=== PATIENT | female | born 1940 | race Caucasian/White ===

== ENCOUNTER 2022-05-08 12:36 | Outpatient (CLI) | payer OTHER, SELFPAY ==
--- NOTE | 2022-05-08 06:00 | DI.RAD_ITS ---
Exam(s) XR PAIN CLINIC SACRIOILIAC 2V EXAM: XR PAIN CLINIC SACRIOILIAC 2V CLINICAL HISTORY: Dx: Sacroiliac Joint Injection TECHNIQUE: 2D and realtime digital imaging was performed. CONTRAST MATERIAL: Refer to procedure report. COMPARISON: No exams were available for comparison FINDINGS: Fluoroscopy was provided for Dr. Hooker during the performance of a left SI joint injection. Please r efer to the procedure report for complete details. Ka,r=4.33 mGy IMPRESSION:
[2022-05-08 13:08] VITALS: BP 120/78; PULSE 76; RESP 20; TEMP 36.8; O2SAT 97
[2022-05-08 13:51] VITALS: BP 152/71; PULSE 87; RESP 17; O2SAT 98
[2022-05-08] MEDS: methylPREDNISolone ACETATE 80 MG/ML VIAL IJ (13:52)
[2022-05-08] MEDS: Omnipaque 240 MG/ML 50 ML BTL IJ (13:52)
--- NOTE | 2022-05-14 13:20 | PDOC.PAIN ---
Date of service: 05/08/22 Time of Service: 13:00 Pain Clinic Procedure Note Procedure Note Procedure Note: INTRA-ARTICULAR SI JOINT INJECTION Mitzy Farmer has been referred to the [facility] for intra-articular SI joint injection. COMMENTS: She was previously evaluated in the clinic. Preprocedure pain VAS was 5/10. Dx: Sacroiliac joint dysfunction Patient was interviewed and the medical record reviewed. There were no medical, pharmacologic, radiographic or other structural contraindications to attempting fluoroscopically guided intra-articular SI joint injection. Risks and expected side effects as well as potential benefit of the procedure were reviewed and voiced concerns addressed. The printed consent form was signed and witnessed. Standard time-out procedure was performed. Patient was placed in the prone position on the fluoroscopy table and automated blood pressure cuff and pulse oximeter applied. The skin entry point for approaching the left SI joint was identified under the most advantageous fluoroscopic view and marked. Following thorough Chlorhexadine preparation of the skin and draping and 1% lidocaine infiltration of the skin entry point and subcutaneous tissues, a 22 gauge spinal needle was placed under fluoroscopic guidance into the left SI joint was identified under the most advantageous fluoroscopic view and marked. Intra-articular placement was confirmed by a clear arthrogram resulting from the injection of 0.25ml Omnipaque 240, 1ml 1% lidocaine, and 80mg Depomedrol were injected intra-articularily with an initial reproduction of a significant component of the usual pain. Vital signs were stable throughout the procedure and were as recorded in the docflowsheet by the nursing staff. If given, dosages of intravenous drugs for anxiolysis and analgesia were documented in MAR. Follow up plans and appointments were discussed with the patient. Post procedure instruction was given as documented in nursing documentation and having met discharge criteria, and was discharged from the [facility]. COMMENTS: Post-procedure pain VAS was 1/10. If this procedure is helpful, it can be completed up to 3 times per 12 months. Srinivas Hooker DO, MPH [facility]-Pain Management [facility] CC: ILA NUNN
== END 2022-05-08 12:37 | disposition home or self-care (01) ==
LOC: PC 12:36
PROVIDERS: PCP Family Medicine; Visit Provider Preventive Medicine Occupational Medicine
DX: M53.3 Sacrococcygeal disorders, not elsewhere classified (principal)
CPT/HCPCS: 27096; 72200; J1040; Q9967

== ENCOUNTER 2023-11-16 15:57 | Outpatient (CLI) | payer OTHER, SELFPAY ==
--- NOTE | 2023-11-16 15:00 | DI.RAD_ITS ---
Exam(s) XR PELVIS AP EXAM: XR PELVIS AP CLINICAL HISTORY: OA LEFT HIP. TECHNIQUE: 2D digital imaging was performed. Single AP view. COMPARISON: CR XR PELVIS (1 OR 2 VIEWS) from 03/10/2022 FINDINGS: BONES: No acute fracture is present. No bony destructive lesion is seen. JOINTS: No dislocation present. There is severe narrowing of the left hip joint space, with a bone on bone appearance. There is some flattening of the femoral head. There is periarticular spurring and sclerosis. The right hip shows mild degenerative changes. SOFT TISSUE: Normal. IMPRESSION: Severe degenerative changes of the left hip. DATA REPOSITORY: RADIATION DOSE DELIVERED:
== END 2023-11-16 15:58 | disposition home or self-care (01) ==
LOC: DIORS 15:57
PROVIDERS: PCP Family Medicine; Visit Provider Student in an Organized Health Care Education/Training Program
DX: M16.12 Unilateral primary osteoarthritis, left hip (principal)
CPT/HCPCS: 72170

== ENCOUNTER 2023-12-02 07:37 | Day surgery (SDC) | payer OTHER, SELFPAY ==
[2023-12-02] VITALS (38 sets, daily range): BP systolic 82–119; BP diastolic 34–93; PULSE 47–97; RESP 13–36; TEMP 36.2–36.5; O2SAT 84–100; BMI 31.5
[2023-12-02] MEDS: Lactated Ringers 1,000 ML 80 ML IV ×2 (08:33→11:52)
[2023-12-02] MEDS: Celecoxib 200 MG CAP 400 MG PO (08:36)
[2023-12-02] MEDS: Acetaminophen 500 MG TAB 1000 MG PO (08:36)
--- NOTE | 2023-12-02 08:36 | W.ANESPRE ---
General Info Date of Service Date Performed: 12/02/23 Height: 5 ft 4 in Weight: 83.4 kg Body Mass Index (BMI): 31.5 Surgical Procedure: Operation Date: 12/02/23 10:05 Proposed Procedure Side Surgeon p Hip Total Hip Anterior, ACTIS Left Christiano Carballo MD Meds Allergies and Home Medications Allergies Allergy/AdvReac Type Severity Reaction Status Date / Time No Known Allergies Allergy Verified 12/02/23 08:12 Home Medication Medication Instructions Recorded apixaban 5 mg tablet (Eliquis) 5 mg PO BID 04/07/22 ascorbic acid (vitamin C) 1,000 mg 1 g PO Q6H 04/07/22 tablet calcium carbonate 500 mg-vitamin 1 tab PO DAILY 04/07/22 D3 5 mcg (200 unit) tablet (Calcium 500 + D) diltiazem HCl 180 mg capsule,24 180 mg PO DAILY 04/07/22 hr,extended release diphenoxylate-atropine 2.5 1 tab PO QID PRN 04/07/22 mg-0.025 mg tablet furosemide 20 mg tablet 20 mg PO DAILY 04/07/22 levothyroxine 125 mcg tablet 125 mcg PO DAILY 04/07/22 lisinopril 2.5 mg tablet 2.5 mg PO DAILY 04/07/22 metoprolol succinate 200 mg 200 mg PO DAILY 04/07/22 tablet,extended release 24 hr pantoprazole 20 mg tablet,delayed 20 mg PO DAILY 04/07/22 release peg 400-propylene glycol (PF) 0.4 1 drp ophthalmic (eye) BID-QID PRN 04/07/22 %-0.3 % eye drops in a dropperette (Systane (PF)) pilocarpine HCl 2 % eye drops 1 drp ophthalmic (eye) TID 04/07/22 simvastatin 40 mg tablet 40 mg PO DAILY 04/07/22 timolol maleate 0.5 % eye drops 1 drp ophthalmic (eye) DAILY 04/07/22 acetaminophen 500 mg tablet 1,000 mg (2 x 500 mg) PO TID #90 12/02/23 tabs celecoxib 200 mg capsule 200 mg PO BID #60 caps 12/02/23 dexamethasone 4 mg tablet 4 mg PO DAILY #2 tabs 12/02/23 tramadol 50 mg tablet 50 mg PO Q4H PRN #20 tabs 12/02/23 Current Visit Medications: Current Medications Generic Name Dose Route Start Last Admin Trade Name Oleksandr PRN Reason Stop Dose Admin Acetaminophen 1,000 mg 12/02/23 06:00 12/02/23 08:36 Acetaminophen 500 Mg Tab PO 12/02/23 23:59 1,000 mg PREOP VANESSA Administration Celecoxib 400 mg 12/02/23 06:00 12/02/23 08:36 Celecoxib 200 Mg Cap PO 12/02/23 23:59 400 mg PREOP VANESSA Administration Ringer's Solution 1,000 mls @ 80 mls/hr 12/02/23 06:00 12/02/23 08:33 IV 12/02/23 23:59 80 mls/hr INFUSION VANESSA Administration Cefazolin Sodium/Dextrose 2 gm in 50 mls @ 100 mls/hr 12/02/23 06:00 Ancef Duplex IVPB 12/02/23 23:59 PREOP VANESSA Tranexamic Acid/Sodium Chloride 1,000 mg in 100 mls @ 600 mls/hr 12/02/23 06:00 IVPB 12/02/23 23:59 PREOP VANESSA IV Miscellaneous Supplies 1 each 12/02/23 06:00 Iv Access IV 12/02/23 23:59 DIRECTED VANESSA Sodium Chloride 0 ml 12/02/23 06:00 Normal Saline Flush 10 Ml Syr IV 12/02/23 23:59 PRN PRN Sodium Chloride 0 ml 12/02/23 06:00 Normal Saline 10 Ml Vial IJ 12/02/23 23:59 DIRECTED PRN Sterile Water 0 ml 12/02/23 06:00 Water,Injection,Sterile 10 Ml Vial IJ 12/02/23 23:59 DIRECTED PRN PFSH Active Problems Active Problems: Problem Status Onset Code Osteoarthritis of left hip M16.12 Hypertensive disorder I10 Type 2 diabetes mellitus without complication E11.9 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 Atrial fibrillation I48.91 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 Medical History Medical History Pain of left hip joint Inflammatory dermatosis Syncope and collapse Atopic dermatitis Cholelithiasis without obstruction GERD (gastroesophageal reflux disease) Glaucoma Obesity Hyperlipidemia Hypothyroidism Tobacco Smoking/Tobacco Use Status: Former Tobacco Use Alcohol Alcohol Intake: never Substance Use Substance use: Never Substance use type: does not use Vital Signs and Lab Results Vital Signs Most Recent Vital Signs in EMR: Most Recent Vital Signs Temp Pulse Resp BP Pulse Ox 36.5 C 89 18 119/81 99 12/02/23 08:16 12/02/23 08:16 12/02/23 08:16 12/02/23 08:16 12/02/23 08:16 Lab Results Blood Type / Crossmatch: No Data to Display Complete Blood Count: No Data to Display Complete Metabolic Panel: No Data to Display Liver Function Panel: No Data to Display Coagulation Panel: No Data to Display Cardiac Panel: No Data to Display Arterial Blood Gas: No Data to Display Venous Blood Gas: No Data to Display Pancreas Panel: No Data to Display Thyroid Panel: No Data to Display Infectious Disease: No Data to Display Blood Cultures: No Data to Display Toxicology Panel: No Data to Display Imaging and Studies Imaging and Studies Study information below may be from another EMR and interpreted by another provider. Please see original notes in EMR for more complete details. EKG Summary: At [facility] 11/24/23 A fib (chronic) Anesthesia Assessment and Plan Anesthesia History Personal History: No History of Anesthesia Complications Family History: No Family History of Anesthesia Complications Exercise Tolerance Exercise Tolerance: Metabolic Equivalents>4 Pertinent Negatives Pertinent Negatives: No Symptoms of GERD, No Major Pulmonary Symptoms or Complaints and No History of CVA/TIA Cardiac & Pulmonary Exam Cardiac Exam: Normal S1/S2 Heart Sounds Pulmonary Exam: Clear Bilateral Breath Sounds Implantable Cardiac Device Does patient have a Pacemaker or an ICD?: No Airway Exam Known Difficult Airway: No Mallampati Class: 2 Mouth Opening: Normal (> 3cm) Thyromental Distance: Less than 3 cm Neck Range of Motion: Full ROM Neck Circumference: Normal Teeth Condition: Normal Dentition ASA Classification ASA Score: ASA 3 Emergency Case?: No NPO Status NPO Status: NPO Clears >2 hours, Solids >8 hours Anesthesia Plan Resuscitation Status: Full Code Anesthesia Technique: Spinal Anesthesia Airway Planned: Natural Airway Monitors Used: Standard Monitors Preoperative Comments:: Stopped Eliquis 3 days preop, no echo seen. Pt. Denies any functional limitation or previous heart valve disease.
--- NOTE | 2023-12-02 09:13 | PDOC.DSDIS_ITS ---
Date of service: 12/02/23 Time of Service: 09:14 Discharge Plan Disposition Patient Disposition: Home Condition: Good Discharge Details Reason For Visit: L THR Attending Provider: Christiano Carballo Primary Care Provider: ILA NUNN Home Meds and New Rx's Prescriptions: New celecoxib 200 mg capsule 200 mg PO BID Qty: 60 0RF acetaminophen 500 mg tablet 1,000 mg PO TID Qty: 90 3RF tramadol 50 mg tablet 50 mg PO Q4H PRNQty: 20 0RF dexamethasone 4 mg tablet 4 mg PO DAILY Qty: 2 0RF Continued calcium carbonate-vitamin D3 [Calcium 500 + D] 500 mg-5 mcg (200 unit) tablet 1 tab PO DAILY diltiazem HCl 180 mg capsule,extended release 24 hr 180 mg PO DAILY diphenoxylate-atropine 2.5-0.025 mg tablet 1 tab PO QID PRN Eliquis 5 mg tablet 5 mg PO BID furosemide 20 mg tablet 20 mg PO DAILY levothyroxine 125 mcg tablet 125 mcg PO DAILY lisinopril 2.5 mg tablet 2.5 mg PO DAILY metoprolol succinate 200 mg tablet extended release 24 hr 200 mg PO DAILY pantoprazole 20 mg tablet,delayed release (DR/EC) 20 mg PO DAILY pilocarpine HCl 2 % drops 1 drp ophthalmic (eye) TID simvastatin 40 mg tablet 40 mg PO DAILY Systane (PF) 0.4-0.3 % dropperette 1 drp ophthalmic (eye) BID-QID PRN timolol maleate 0.5 % drops 1 drp ophthalmic (eye) DAILY Rx Instructions: both eyes ascorbic acid (vitamin C) 1,000 mg tablet 1 g PO Q6H Discharge Instructions Additional Instructions: Total Hip Discharge Instructions Activity: The most important activity is to walk. You should try to take short walks a few times a day. You have no restrictions on movement or positioning, but do not try to force what you do. You will find some stiffness and weakness with hip flexion (lifting your knee). Do not try to strengthen this too early, continue to practice walking and stairs and this will come. - Outpatient physical therapy can be helpful to help return you to a normal gait and improve your flexibility and strength. This can start around 2 weeks. For some patients, it?s not necessary. Usually this is determined at the time of discharge or at the first post-operative visit. - You should wear the SHORTY hose on both legs for 2 weeks. Dressing: Keep the surgical dressing in place for at least one week. After the first week it may be removed and replace with light gauze and tape or nothing. It may get wet after 3 days but avoid soaking the dressing. If it gets wet, just lightly pat dry. It is important to always keep some gauze between skin folds, especially when you are sitting. Spend some time with the wound exposed when you are lying flat as the incision does wrinkle onto itself. Medications: - You should take Tylenol and an anti-inflammatory Celebrex as your primary pain control medications. If the Celebrex is too expensive or not covered, please call the office for another alternative (Advil/Ibuprofen or Naproxen/Aleve). - You have been prescribed a stronger pain medication tramadol for breakthrough pain, take as needed as prescribed. - You will continue your Pantoprozole to help reduce stomach acid and reflux. - You have also been prescribed Decadron to help with post-operative nausea and pain. You will take this for two days starting tomorrow. - You will be taking your apixaban for DVT prevention unless instructed otherwise. - If you have constipation you should take Colace or Miralax (both [id number]). It takes most people 3-4 days to have a bowel movement. Follow-up: 2 weeks If you have any acute concerns or questions, please do not hesitate to contact the office at [phone]. You may contact Dr. Carballo with any questions after hours through the hospital at [phone] or on his cell phone at [phone]. Referrals: Christiano Carballo MD [ [facility] STAFF PHYSICIAN] - Equipment/Supplies: Walker Activity:: Activity as Tolerated Shower/Bathe:: 72 hours Diet:: As Tolerated Discharge Orders Discharge Orders: Discharge Order (Routine); Ordered 12/02/23 Ordered By: Adriano Joyce DS: Diagnosis Discharge Diagnosis (1) Osteoarthritis of left hip: Status: Acute
[2023-12-02] MEDS: ceFAZolin 2 GM/50 ML BAG IVPB (09:43)
[2023-12-02] MEDS: TRANEXAMIC ACID/SOD. CHL. 1,000 MG/100 ML BAG 600 MG IVPB (09:55)
[2023-12-02] MEDS: Tranexamic Acid 1,000 MG/10 ML VIAL 1000 MG (10:54)
--- NOTE | 2023-12-02 11:03 | DI.RAD_ITS ---
Exam(s) XR HIP LT IN OR EXAM: XR HIP LT IN OR CLINICAL HISTORY: LEFT HIP OA TECHNIQUE: 2D and realtime digital imaging was performed. CONTRAST MATERIAL: Refer to procedure report. COMPARISON: CR XR PELVIS AP from 11/16/2023 FINDINGS: Fluoroscopy was provided for Dr. Carballo during the performance of a left total hip replacement. P lease refer to the procedure report for complete details. Ka,r=3.3 mGy IMPRESSION: RADIATION DOSE DELIVERED: 0.0 0.0 0
--- NOTE | 2023-12-02 11:35 | W.PM.OP ---
Date of service: 12/02/23 Time of Service: 10:10 Operative Note Operative Note DATE OF PROCEDURE: 12/02/23 PRE-OP DIAGNOSIS: Left Hip Arthritis POST-OP DIAGNOSIS: same PROCEDURE: Left Anterior Total Hip Arthroplasty with Intraoperative Navigation SURGEON: Christiano Carballo SOLAR PROJECT COORDINATION SPECIALIST: Adriano Joyce ANESTHESIA TYPE: Spinal Refer to Anesthesia Record ESTIMATED BLOOD LOSS: 400 PATHOLOGY: none sent TOURNIQUET TIME: 0 COMPLICATIONS: None Patient was transported to: PACU Patient's condition: stable Implants: 1. Depuy [place] Acetabular Component, 52mm 2. Depuy Acetabular Liner, [id number] 3. Depuy Actis Standard Collared Femoral Stem, Size 5 4. Depuy Altrx Ceramic Femoral Head, Size 36+5mm Indications: I have seen Mitzy in clinic for symptoms of hip arthritis, confirmed with radiographic findings. She has exhausted nonoperative methods and was having significant limitations in daily function and desired better function and less pain. I discussed the technical details of a hip replacement. I explained the risks of the procedure to include, but not limited to, bleeding, infection, pain, stiffness, fracture, damage to nerves and vessels, damage to muscles and tendons, loosening, instability, leg length inequality, need for repeat procedure, blood clot and cardiopulmonary demise. Despite these risks, Mitzy elected to proceed. Findings: There was significant signs of arthritis throughout the hip. Procedure Description: Mitzy was greeted in the preoperative holding area where the correct side was identified and marked. The consent was reviewed with the patient and signed. The history and physical was updated. All questions were answered. She was taken back to the operating room. A spinal anesthestic was then administered. The feet were wrapped with cast padding and Coban and then placed into the boot liners and then into the boots. Care was taken to protect the skin and make sure the heels were fully down and the boots were stable. The patient was then positioned onto the HANA table. Both legs were held in a neutral position. SCDs were applied. The patient was then slid down onto a peroneal post. Prophylactic antibiotics in the form of Cefazolin were administered. 1g of Tranxemic Acid was given intravenously within 30 minutes of incision. The left leg was then prepped with Chloraprep and draped in a standard fashion. A second prep with Chloraprep was performed prior to placement of a shower-curtain type drape with Iodine impregnated skin protection. A timeout to confirm correct identity, side and site, procedure, allergies, anesthesia, and medical concerns was performed. An obliquely oriented incision was made starting lateral to the ASIS and running distal over the Tensor Fascia Jodee (TFL) muscle belly toward the fibular head, approximately 10cm. The skin and soft tissue was dissected sharply, through Bita?s fascia, and to the fascia of the TFL. With the fascia and superior border of the IT band identified, the fascia was incised with a new knife just above any perforators from the IT band. The TFL muscle belly was bluntly dissected away from the fascia and moved laterally. The fat between TFL and rectus was identified to ensure the dissection was not within the TFL. Blunt dissection created space between abductors and the capsule and retractor was placed over the lateral femoral neck. The fibers of the rectus femoris tendon were identified and these were freed from the anterior capsule. A second cobra retractor was placed around the medial femoral neck. The TFL was further retracted laterally to show the deep fascia. Careful dissection through this layer identified three main crossing vessels of the lateral femoral circumflex. These were cauterized in multiple locations and then cut without any noticeable bleeding. The TFL was further released bluntly from the deep fascia to expose anterior hip capsule and fat The Sree orthopaedic retractor was then placed beneath the TFL and against sartorius and medial soft tissues to protect and retract the soft tissues. A T-capsulotomy was then performed starting at the superior lateral acetabulum and moving distally to the intertrochanteric ridge. These capsular flaps were tagged with a No. 1 Ethibond and elevated from within. The capsular flaps were released to the shoulder of the lateral neck and to the lesser trochanter to give excellent visualization of the proximal femur. A neck osteotomy was performed using an oscillating saw based on preoperative templates. This cut started in the shoulder and of the lateral neck and exited medially. The saw was at all times directed medially to avoid injury to the greater trochanter. Gross traction was applied to the leg and the osteotomy opened. The femoral head was removed with a corkscrew, making sure to protect the TFL on its exit. Traction was released after head removal. This was measured on the back table to determine the starting reamer size. Portions of the rectus obscuring visualization were minimally elevated off the superior acetabulum. An anterior retractor was placed over the anterior wall between capsule and labrum and attached to the Gripper retraction system. The femur was rotated to 90 degrees and medial capsule was fully released until the lesser trochanter was palpable and visible; the femur was returned to 30 degrees. A posterior retractor was placed similarly between capsule and labrum. This provided excellent visualization. The contents of the cotyloid fossa were removed with electrocautery and the labrum was removed with a knife. There was a notable floor osteophyte. There was significant chondromalacia of the superior acetabulum. Acetabular reaming began with a 48mm reamer. This first reaming was directed anterior to posterior and medial to get down to the true floor. This was inspected and reamed until the true floor was reached. The anterior retractor was then released and entry and exit was provided by traction on the capsular flaps. I then reamed sequentially up to a 52mm reamer where good fit was obtained. The larger reamers were oriented based on anatomical reference of the anterior and lateral carreno to ensure proper abduction and anteversion. Positioning and size was confirmed with the fluoroscopy. A 52mm Depuy [place] acetabular component was selected. The acetabulum was reamed around the periphery with the selected acetabular size to prevent a rim fit. The deep tissues were irrigated. The acetabular component was then impacted in a position of about 40-45 degrees of abduction and 15-20 degrees of anteversion, using the patient?s anatomy as the ultimate landmark. Fluoroscopy was used to confirm this. There was excellent classification analyst of the acetabular component and the inserting handle was removed. The acetabular liner, Depuy [id number] polyethylene liner, was inserted and lined up with the tines of the acetabular component. There was no soft tissue interposition. The liner was then impacted into position and confirmed to be well-seated. A portion of the jim-articular cocktail was then injected around the acetabulum into the capsule and periosteum. This cocktail consisted of 123mg of Ropivacaine, 0.25mg of Epinephrine, 0.04mg of Clonidine, and 15mg of Ketorolac, diluted to 50cc. The leg was rotated to 120 degrees. Any remaining medial capsule was released until the lesser trochanter was easily palpable. A retractor was placed medially. The lateral capsule was further released into the shoulder to allow access to the greater trochanter. A Rogel retractor was placed over the greater trochanter which allowed the trochanter to flip in front of the capsule for excellent exposure. The leg was brought down into maximal extension and 20 degrees of adduction while ensuring there was no impingement on the acetabulum. Any remnant capsule within the trochanter was released. Piriformis and obturator externis were identified and protected. There was excellent access to the proximal femur. The lateral neck remnant was removed with a rongeur. A blunt canal probe was used to identify the canal and trajectory for later broaching. A box osteotome initiated the broach course. A small curved rasp and a curved curette were used to work laterally. Broaching then began with a starter Actis broach. This was inserted manually around the trochanter and into the canal before mallet blows. The broach was seated to a few millimeters below the cut level based on the neck cut and the preoperative template. Sequential broaching was continued with the Leadjini pneumatic broaching device until a tight fit was obtained with good rotational control of the femur. A trial standard neck was inserted along with a +1.5 trial head. The leg was brought out of extension and adduction and then reduced with traction and internal rotation. The leg was stable anteriorly in a position of 30 degrees of extension and 90 degrees of external rotation. Fluoroscopy was used to ensure there was no fracture and the stem was seated well. Leg lengths were checked with an AP pelvis and pelvic reference points. Imaginatik navigation system was used to confirm appropriate positioning and leg length and offset. Once content with the desired offset and leg lengths, the leg was brought back into extension, external rotation and adduction. The periosteum and surrounding tissue was injected with remaining portion of the jim-articular cocktail. The proximal femur was irrigated as well as the deep tissues. The [employer] standard collared stem, size 5, was then manually inserted into the proximal femur making sure to control rotation. It was then malleted into position with light blows, giving breaks to allow bone expansion and decrease risk of fracture. The selected Depuy Altrx Ceramic Head, size 36+5mm, was then placed onto the clean and dry trunnion and secured with impaction onto the tapered fit. The leg was brought back out of extension and adduction and reduced with traction and internal rotation. Stability was confirmed with no shuck at 90 degrees of external rotation and 30 degrees of extension. No impingement through range of motion arc. Final x-ray images were obtained with fluoroscopy to confirm adequate positioning and no intraoperative fracture. The deep tissues were thoroughly irrigated with Surgiphor, betadine solution. This was allowed to sit in the wound for 3 minutes before being thoroughly irrigated out with normal saline. The capsule was then reapproximated with the previously placed Ethibond sutures. The TFL fascia was finally closed with a No. 2 Stratafix, barbed suture. Deep tissues were then reapproximated with 0 Vicryl and a running 2-0 Vicryl. The skin was closed with a running 4-0 Monocryl in a subcuticular fashion. This was reinforced with skin glue. A Mepilex silver dressing was applied. At the end of the case, all counts were correct. Mitzy was transferred to the hospital bed without difficulty and suffering no apparent complication. She has a good prognosis. Physical therapy will start today and without restrictions, weight-bearing as tolerated. Her home dose of Apixaban will be used for DVT prophylaxis.
--- NOTE | 2023-12-02 14:12 | W.ANESPOSTOP ---
Postoperative Evaluation Date, Time and Location Date Performed: 12/02/23 Time Performed: 14:12 Patient Location: Day Surgery Unit Vital Signs Most Recent Imported Vital Signs: Most Recent Vital Signs Temp Pulse Resp BP Pulse Ox 36.4 C L 71 16 106/54 L 99 12/02/23 14:06 12/02/23 14:06 12/02/23 14:06 12/02/23 14:06 12/02/23 14:06 Pain Score Most Recent Pain Score: Most Recent Pain Score Pain Level 4 12/02/23 14:06 Assessment Mental Status: Awake (Alert & Oriented to Patient Baseline) Airway and Respiratory Function: Patent airway with normal (patient baseline) respiratory exam Cardiovascular Function: Hemodynamically Stable Hydration Status: Adequately Hydrated Nausea & Vomiting: No Nausea or Vomiting Pain: Pain is tolerable per patient Peripheral Nerve Block: Patient did not receive a nerve block
--- NOTE | 2023-12-02 14:53 | IN_ITS ---
PT Notes Visit Reasons: L THR Inpatient Physical Therapy Evaluation Date: 12/02/23 Referring Doctor: ZANDER Kidd PT Orders: PT CONSULT: s/p left anterior GEE Precautions: WBAT Patient Profile/Admitting Diagnosis: Patient seen in DSU following left GEE, anterior approach, post op day 0. Social History/Home Situation: Lives alone in private home. Has stair lift to enter from garage, then single level. Son lives locally and is supportive; is present for today's evaluation. 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 Current Functional Limitations: Reports that she has been walking bent over for 2 years due to severity of pain. Recently reliant on cane. Equipment Owned/DME: cane, stair lift Subjective: Mitzy states that she is feeling good. She has some soreness in lateral hip, but reports that pain is better now than prior to surgery. She has been up to the bathroom with nursing, which she reports went well. Objective: General Observation: Resting in chair with ice pack to left hip. IV in RUE. Mental Status: A&Ox3. Very pleasant and cooperative. Vital Signs: monitored by nursing ROM: Right Upper Extremity: WFL Left Upper Extremity: WFL Right Lower Extremity: WFL Left Lower Extremity: Strength: Right Upper Extremity: WFL Left Upper Extremity: WFL Right Lower Extremity: WFL Left Lower Extremity: Quads 3/5. Able to pump ankle and wiggle toes. Hip flexion 3-/5. Bed Mobility/Transfers: sit-stand: SBA stand-sit: SBA Gait: ambulates 50' with FWW, SBA. Declines stairs, as she does not manage at baseline. Balance: Static Sitting: Normal Dynamic Sitting: normal Static Standing: good Dynamic Standing: fair Special Tests: Mobility Limitations Standardized Measure [facility] AM-PAC 6 clicks Basic Mobility Inpatient Short Form: Raw Score: 22 CMS Score: 21 % impairment Informed Consent/Education: Patient instructed in purpose of PT consult and plan of care. Treatment: Initial Evaluation Instruction in HEP and provided with handouts for completion of the following: Ankle pumps 10x Quad sets 10x Gluteal sets 10x heel slide (assistance with towel as needed) 10x LAQ 10x Gait Training: instructed in use of FWW. Walker fitted to patient height and comfort. instructed in stair management, although she defers completion today, as she does not manage stairs at baseline instructed in safe transfers, with minimal cues for technique Assessment: Patient is an 83 year old female referred to physical therapy services with the diagnosis of left hip OA, now s/p GEE post op day 0. She received PT evaluation, gait and transfer training, and instruction in HEP. Was able to demonstrate independence with transfers and household distance ambulation. Requires assistive device for all ambulation, and will be issued FWW prior to discharge. Appropriate for d/c home with family support. Patient presents with clinical signs and symptoms consistent with post-operative status, as demonstrated by the following impairment level findings: 1. decreased LLE strength 2. post-op pain 3. gait impairments Impairments are contributing to the following functional limitations: 1. unable to ambulate without device 2. decreased activity tolerance Patient is assessed as a Low 30856 complexity based on the following: History: as above. No complicating factors. Examination: functional limitations as noted above Presentation: evolving due to acute post-op status Decision Making: low Plan of Care/Treatment Plan: Discharge home with FWW and family support DISCHARGE RECOMMENDATIONS: Home with no services TREATMENT CODE/TIME: 00702, 39144 (2:20-2:50) Jessy Huang PT, DPT, [facility] Please sign an return this page within 30 days if you agree with the above POC. Thank you! Physician Signature Date [facility] All Active Problems History of total left hip arthroplasty (Acute) Osteoarthritis of left hip (Acute) Hypertensive disorder (Chronic) Type 2 diabetes mellitus without complication (Acute) Supraventricular premature beats (Acute) Atrial fibrillation (Chronic) Sacroiliac joint dysfunction of left side (Acute) Medical History Pain of left hip joint Inflammatory dermatosis Syncope and collapse Atopic dermatitis Cholelithiasis without obstruction GERD (gastroesophageal reflux disease) Glaucoma Obesity Hyperlipidemia Hypothyroidism
== END 2023-12-02 15:29 | disposition home or self-care (01) ==
PROVIDERS: PCP Family Medicine; Visit Provider Student in an Organized Health Care Education/Training Program
PROC: (CPT 27130; principal; 2023-12-02 09:45)
DX: M16.12 Unilateral primary osteoarthritis, left hip (principal); E78.5 Hyperlipidemia, unspecified; K21.9 Gastro-esophageal reflux disease without esophagitis; E66.9 Obesity, unspecified; E03.9 Hypothyroidism, unspecified
CPT/HCPCS: 27130; 20985; 97116; 97161; 73501; C1776; J0690; J1100; J2001; J2250; J2371; J2401; J2405; J2704

== ENCOUNTER 2023-12-17 15:03 | Outpatient (CLI) | payer OTHER, SELFPAY ==
--- NOTE | 2023-12-17 12:30 | DI.RAD_ITS ---
Exam(s) XR HIP LT COMPLETE AP PELVIS EXAM: XR HIP LT COMPLETE AP PELVIS INDICATION: 1st post op s/p L GEE. COMPARISON: CR XR PELVIS AP from 11/16/2023 XA XR HIP LT IN OR from 12/02/2023 TECHNIQUE: 2D digital imaging was performed. Two views. FINDINGS: Stable alignment of left hip prosthesis. No abnormal surrounding bony lucencies. Mild degenerative changes are noted in the right hip. DATA REPOSITORY: RADIATION DOSE DELIVERED:
== END 2023-12-17 15:04 | disposition home or self-care (01) ==
LOC: DIORS 15:03
PROVIDERS: PCP Family Medicine; Visit Provider Physician Assistant
DX: Z96.642 Presence of left artificial hip joint (principal); Z47.1 Aftercare following joint replacement surgery
CPT/HCPCS: 73502

== ENCOUNTER 2024-12-01 14:35 | Outpatient (CLI) | payer OTHER, SELFPAY ==
--- NOTE | 2024-12-01 14:15 | DI.RAD_ITS ---
Exam(s) XR HIP LT AP LAT ONLY EXAM: XR HIP LT AP LAT ONLY CLINICAL HISTORY: ANNUAL F/U L GEE. TECHNIQUE: 2D digital imaging was performed. COMPARISON: CR XR HIP LT COMPLETE AP PELVIS from 12/17/2023 FINDINGS: Two views There is stable position alignment of the components of the left hip prosthesis. No fracture or loos ening. There is dystrophic calcification again noted lateral to the acetabulum and medial to the top of the greater trochanter. IMPRESSION: Stable appearance of the components of the prosthesis. Dystrophic soft tissue calcification again noted. DATA REPOSITORY: RADIATION DOSE DELIVERED:
== END 2024-12-01 14:36 | disposition home or self-care (01) ==
LOC: DIORS 14:35
PROVIDERS: PCP Family Medicine; Referring Provider Family Medicine; Visit Provider Student in an Organized Health Care Education/Training Program
DX: Z96.642 Presence of left artificial hip joint (principal); M71.452 Calcium deposit in bursa, left hip; M70.62 Trochanteric bursitis, left hip; M53.3 Sacrococcygeal disorders, not elsewhere classified
CPT/HCPCS: 73502